=== PATIENT | male | born 1985 | race Caucasian/White ===

== ENCOUNTER 2019-08-31 16:00 | Inpatient (IN) ==
[2019-08-31] MEDS ORDERED: ASPIRIN PO ONE (16:11)
--- NOTE | 2019-08-31 17:03 | Diag Imaging Result Doc PS360 ---
EXAM: CHEST-2 VIEWS HISTORY: chest pain with hxo TECHNIQUE: Two views COMPARISON: 02/13/2019 FINDINGS: The lungs are well expanded. The heart is not enlarged. The vessels are not distended. There are no infiltrates. No pleural effusions. IMPRESSION: No acute abnormality. Electronically signed by Koko Stallworth 08/31/2019 5:01 PM
[2019-08-31 17:15] LABS: BASO# 0.09 X1000 (0.0-0.2); BASO% 0.9 % (0.0-0.8); EOS# 0.14 X1000 (0.0-0.7); EOS% 1.3 % (0.0-10.0); HEMATOCRIT 47.4 % (42.0-52.0); HEMOGLOBIN 15.8 g/dL (14.0-18.0); IMM GRAN# 0.02 X1000 (0.0-0.04); IMM GRAN% 0.2 % (0.0-0.5); LYMPH# 3.13 X1000 (1.2-3.4); LYMPH% 29.7 % (20.5-51.1); MCHC 33.3 g/dL (33-37); MCV 80.9 FL (81-99); MONO# 0.86 X1000 (0.11-0.59); MONO% 8.2 % (1.7-9.3); MPV 11.6 FL (7.4-10.4); NEUT% 59.7 % (42.2-75.2); PLT 318 X1000 (130-400); RBC 5.86 XMIL (4.7-6.1); WBC 10.54 X1000 (4.8-10.8)
--- NOTE | 2019-08-31 17:16 | PROVIDER DOCUMENTATION ---
HPI-Chest Pain - General Chief Complaint: Chest Pain Stated Complaint: CHEST PAIN, WEAKNESS Time Seen by Provider: 08/31/19 16:54 Allergies/Adverse Reactions: Patient Allergies Allergy/AdvReac Type Severity Reaction Status Date / Time ibuprofen Allergy SWELLING Verified 08/31/19 17:05 Home Medications: Home Medication List Medication Instructions Recorded Confirmed Last Taken Type ATORVAstatin [Lipitor] 20 mg PO QPM 07/08/19 08/31/19 08/30/19 History Clopidogrel [Plavix] 75 mg PO QAM 07/08/19 08/31/19 08/31/19 History Alprazolam [Xanax] 1 tab PO BID 08/31/19 08/31/19 08/31/19 History Metoprolol Succinate 1 tab PO BID 08/31/19 08/31/19 08/31/19 History - History of Present Illness-CP Nature of Presenting Problem: hx coronary artery disease x 5 stents 5 Mi this pain started this am with left side chest pain radiating to left arm Location: reports: substernal Chest Pain Radiation: reports: no radiation Quality of Pain: reports: pressure, tightness Severity in ED: moderate Onset/Duration: gradual, 3 days ago Timing: still present Context/Activities at Onset: reports: none Modifying Factors: improves with: nothing Associated Symptoms: denies: abdominal pain, fever/chills, shortness of breath Prior Chest Pain/Cardiac Workup: reports: cardiac cath, heart attack Similar Symptoms Previously?: Yes Recently Seen Here or By Another Healthcare Provider: No Review of Systems - Adult - REVIEW OF SYSTEMS - ADULT Constitutional: denies: fever, fatique Eyes: reports: no symptoms reported Ears, Nose, Mouth & Throat: reports: no symptoms reported Cardiovascular: reports: chest pain Respiratory: reports: no symptoms reported Gastrointestinal: reports: no symptoms reported Genitourinary: reports: no symptoms reported Musculoskeletal: reports: no symptoms reported Integumentary: reports: no symptoms reported Neurological: reports: no symptoms reported Psychiatric: reports: no symptoms reported Endocrine: reports: no symptoms reported Hematologic/Lymphatic: reports: no symptoms reported Allergic/Immunologic: reports: no symptoms reported Past History - Adult - PAST MEDICAL HISTORY-ADULT Review of Records: reports: Nursing Assessment Review Major Childhood Illnesses: reports: denies history Cardiovascular: reports: A-Fib, CAD, [place] Respiratory: reports: denies history Gastrointestinal: reports: denies history Obstetrical/Gynecological: reports: denies history Genitourinary: reports: denies history Musculoskeletal: reports: denies history Neurological: reports: denies history Endocrine/Immune: reports: denies history Other Conditions: reports: denies history - PRIOR SURGERIES/PROCEDURES Surgical/Procedure History: reports: cardiac stent, hernia repair - IMMUNIZATION STATUS Childhood Immunizations: See Nurse Assessment Flu Vaccine: See Nurse Assessment - FAMILY HISTORY Family History: other (AL mother 55, AL father 80. mother had CHF) Physical Exam-General - PHYSICAL EXAM-ADULT Initial Vital Signs Reviewed: Yes - CONSTITUTIONAL General Appearance: appears well, alert - EYES Eyes: PERRL/EOMI. negative: anisocoria, subconjunctival hemorrhage - HEAD, EARS, NOSE, MOUTH & THROAT HENMT: normocephalic/atraumatic, moist mucous membranes - NECK Neck: non-tender, full range of motion, supple - RESPIRATORY Respiratory: chest non-tender, lungs clear, normal breath sounds, no pleuratic chest pain, no respiratory distress - CARDIOVASCULAR Cardiovascular: normal peripheral pulses, regular rate, rhythm, no edema, no gallop, no JVD, no murmur - GASTROINTESTINAL (ABDOMEN) Abdominal Exam: normal bowel sounds, non tender, soft, no organomegaly, no pul satile mass - LYMPHATIC Lymphatic: no adenopathy - MUSCULOSKELETAL Back Exam: normal inspection, no CVA tenderness, no vertebral tenderness Extremity: normal range of motion, non-tender, normal gait - SKIN Integumentary: normal color, warm/dry - NEUROLOGIC 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: 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, grossly normal, no motor/sensory deficits - PSYCHIATRIC Psych/Mental Status: normal mood/affect - HEART Score HEART Score: History: Slightly Suspicious HEART Score: ECG: Non-Specific Repolarization Disturbance/LBBB/PM HEART Score: Age: < or = 45 Years HEART Score: Risk Factors for Atherosclerotic Disease: > or = 3 Risk Factors or History of Atherosclerotic Disease HEART Score: Troponin: < or = Normal Limit Total HEART Score:: 3 Progress - PLAN OF CARE/RESULTS Progress/Plan/Lab Results: Vital Signs - 8 hr 08/31/19 16:05 Temperature 98 F Pulse Rate 93 H Respiratory Rate 18 Blood Pressure 128/87 Laboratory Results - last 24 hr 08/31/19 08/31/19 08/31/19 16:45 16:45 16:45 WBC 10.54 RBC 5.86 Hgb 15.8 Hct 47.4 MCV 80.9 L MCH 27.0 MCHC 33.3 RDW Std Deviation 15.0 H Plt Count 318 MPV 11.6 H Immature Gran % (Auto) 0.2 Neut % (Auto) 59.7 Lymph % (Auto) 29.7 Creek % (Auto) 8.2 Eos % (Auto) 1.3 Baso % (Auto) 0.9 H Immature Gran # (Auto) 0.02 Neut # (Auto) 6.30 Lymph # (Auto) 3.13 Creek # (Auto) 0.86 H Eos # (Auto) 0.14 Baso # (Auto) 0.09 PT INR PTT (Actin FS) Sodium 140 Potassium 3.9 Chloride 106 Carbon Dioxide 19 L Anion Gap 15 BUN 10 Creatinine 0.8 Estimated GFR/1.73 m2 > 60 BUN/Creatinine Ratio 13 Glucose 107 H Calculated Osmolality 279 Calcium 9.0 Total Bilirubin 0.20 AST 17 ALT 30 Alkaline Phosphatase 103 Creatine Kinase 88 Troponin T High Sens 11 Total Protein 6.5 Albumin 4.0 Globulin 3.0 Albumin/Globulin Ratio 2.0 08/31/19 16:45 WBC RBC Hgb Hct MCV MCH MCHC RDW Std Deviation Plt Count MPV Immature Gran % (Auto) Neut % (Auto) Lymph % (Auto) Creek % (Auto) Eos % (Auto) Baso % (Auto) Immature Gran # (Auto) Neut # (Auto) Lymph # (Auto) Creek # (Auto) Eos # (Auto) Baso # (Auto) PT 12.2 INR 0.87 PTT (Actin FS) 27.9 Sodium Potassium Chloride Carbon Dioxide Anion Gap BUN Creatinine Estimated GFR/1.73 m2 BUN/Creatinine Ratio Glucose Calculated Osmolality Calcium Total Bilirubin AST ALT Alkaline Phosphatase Creatine Kinase Troponin T High Sens Total Protein Albumin Globulin Albumin/Globulin Ratio Orders Category Date Time Status Cardiac Monitoring DIRECTED Care 08/31/19 16:11 Active Oxygen Therapy- ED Nursing DIRECTED Care 08/31/19 16:11 Active Saline Loc NOW Care 08/31/19 16:11 Active CHEST-2 VIEWS [RAD] Stat Exams 08/31/19 16:11 Completed CBC WITH ELECTRONIC DIFF [HEME] Stat Lab 08/31/19 16:45 Completed CK PROFILE [SP CHEM] Stat Lab 08/31/19 16:45 Completed COMPREHENSIVE METABOLIC PANEL [CHEM] Stat Lab 08/31/19 16:45 Completed PRO B-NATRIURETIC PEPTIDE Stat Lab 08/31/19 16:45 Received PROTIME WITH INR [COAG] Stat Lab 08/31/19 16:45 Completed PTT [COAG] Stat Lab 08/31/19 16:45 Completed TROPONIN T HIGH SENSITIVITY Stat Lab 08/31/19 16:45 Completed Aspirin Med 08/31/19 16:11 Discontinued 325 mg PO NOW ONE CP/SOB/Palp >45 yrs of Age Stat Oth 08/31/19 16:11 Ordered EKG [EKG] Stat Ther 08/31/19 16:11 Draft Result Diagrams: 08/31/19 16:45 08/31/19 16:45 - CONSULTS/PCP/HOSPITALIST Notification #1 *Consult/PCP/Hospitalist*: Dr Paniagua Time Discussed: 17:15 Consult Disposition: Will see in ED, Admit Departure - Departure Date of Disposition Decision: 08/31/19 Time of Disposition Decision: 17:58 DIAGNOSIS: Chest pain Qualifiers: Chest pain type: unspecified Qualified Code(s): R07.9 - Chest pain, unspecified Disposition: ADMITTED INPATIENT 09 Certified Medical Emergency: Emergent Condition: Good Referrals and Follow-Ups: None,PCP [Primary Care Provider] - - Critical Care Note This patient required my direct & personal management of CC.: No Attestation - Physician/ FAUZIA Attestation Patient care was provided by Advanced Practice Provider:: No The physician spent face to face time with patient:: Yes Advanced Practice Provider documentation review:: Supervising physician onsite and consulted in the evaluation and care of this patient. The physician did have a face to face encounter with the patient.
[2019-08-31 17:32] LABS: AGAP 15; ALKALINE PHOSPHATASE 103 U/L (32-122); BUN 10 mg/dL (8-22); CHLORIDE 106 mmol/L (98-107); CK PROFILE 88 U/L (24-204); COSMO 279; CREATININE 0.8 mg/dL (0.7-1.2); ESTIMATED GFR > 60; GLUCOSE 107 mg/dL (70-104); GOT 17 U/L (10-34); GPT 30 U/L (10-44); POTASSIUM 3.9 mmol/L (3.5-5.1); SODIUM 140 mmol/L (136-145); TCO2 19 mmol/L (25-35); TOTAL PROTEIN 6.5 g/dL (6.3-8.3)
[2019-08-31 17:33] LABS: INR 0.87; PROTIME 12.2 Seconds (11.0-16.0)
[2019-08-31 17:34] LABS: PTT 27.9 Seconds (22.3-41.8)
--- NOTE | 2019-08-31 17:34 | EKG Report ---
Test Performed on : 08/31/2019 4:13:48 PM Test Reason : chest pain Blood Pressure : / mmHG Vent. Rate : 096 BPM Atrial Rate : 096 BPM P-R Int : 162 ms QRS Dur : 100 ms QT Int : 364 ms P-R-T Axes : 040 -09 081 degrees QTc Int : 459 ms Normal sinus rhythm. Possible Left atrial enlargement Inferior infarct (cited on or before 08-JUL-2019) Abnormal ECG When compared with ECG of 08-JUL-2019 22:09, No significant change was found Unconfirmed Result
[2019-08-31] MEDS ORDERED: TYLENOL PO PRN (18:35)
[2019-08-31] MEDS ORDERED: ZOFRAN IV PRN (18:35)
[2019-08-31] MEDS: LOVENOX SUBQ SCH (18:45)
[2019-08-31] MEDS: MORPHINE IV PRN ×2 (18:46→22:30)
--- NOTE | 2019-08-31 20:37 | HISTORY AND PHYSICAL ---
PRIMARY CARE PHYSICIAN: None. DECORATING EQUIPMENT SETTER: Dr. Medina CHIEF COMPLAINT: Left-sided chest pain with pressure and tightness radiating to the left arm with associated shortness of breath and fatigue over the past 3 days that progressively worsened. HISTORY OF PRESENTING ILLNESS: This is a 33-year-old male who presents to [facility] ER with complaints of left-sided chest pain that radiated to his left arm with pressure and tightness and associated shortness of breath and fatigue over the past 3 days that has progressively worsened. He has a history of atrial fibrillation, coronary artery disease and myocardial infarction x5 with 5 heart stent placements in the past. Workup today showed first set of cardiac enzymes with a creatine kinase of 88, and troponin T high sensitivity of 11. His EKG showed normal sinus rhythm at 96, so he will be admitted to the [facility] for further evaluation and treatment and for Cardiology consultation. PAST MEDICAL HISTORY: Coronary artery disease, myocardial infarction x5 and atrial fibrillation. PAST SURGICAL HISTORY: Heart stent placement x5 and a hernia repair. FAMILY HISTORY: Mom with myocardial infarction and CHF. Father with myocardial infarction. SOCIAL HISTORY: Currently lives with a brother and sister. Denies any tobacco use, stating he quit about 6 months ago and denied any alcohol or illicit drug use. ALLERGIES: Ibuprofen. HOME MEDICATIONS: Xanax 1 mg p.o. b.i.d., atorvastatin 20 mg p.o. nightly, Plavix 75 mg p.o. q.a.m., metoprolol 25 mg p.o. b.i.d. LABORATORY DATA: White blood cell count of 10.54, hemoglobin 15.8, hematocrit 47.4, platelets 318,000. PT and INR of 12.2 and 0.87. Sodium of 140, potassium 3.9, chloride 106, CO2 19, BUN of 10, creatinine 0.8, glucose of 107. Creatine kinase of 88. Troponin T high sensitivity of 11. Chest x-ray showed no acute abnormality. EKG showed normal sinus rhythm at 96. REVIEW OF SYSTEMS: He denied any fever, chills, blurred vision, dizziness. He was positive for chest pain that radiated down his left arm with pressure and tightness, shortness of breath and fatigue. Denied any abdominal pain, constipation, diarrhea, burning or hurting with urination. PHYSICAL EXAMINATION: VITAL SIGNS: On arrival he had a temperature of 98 degrees, pulse 93, respirations 18, blood pressure 128/87. He is saturating 97% on 2 L via nasal cannula. GENERAL: This is a 33-year-old male who is lying in the bed and answers questions appropriately. HEENT: Normocephalic, atraumatic. Normal ENT inspection. Oropharynx and nares are clear. EYES: Pupils are equal, round, reactive to light and accommodation. Extraocular movements are intact. NECK: Normal inspection, normal range of motion. LUNGS: Clear to auscultation bilaterally with equal lung expansion and chest wall movement. HEART: With regular rate and rhythm. No murmurs, rubs, or gallops. ABDOMEN: Soft, nontender, nondistended. Bowel sounds are present x4 quadrants. MUSCULOSKELETAL: He had 5/5 strength x4 extremities. NEUROLOGICAL: The cranial nerves 2-12 appear grossly intact. ASSESSMENT: 1. Chest pain. 2. Coronary artery disease, aware. 3. History of atrial fibrillation. 4. Tobacco abuse. Last use 6 months ago. PLAN: He will be admitted to the [facility] and placed on telemetry. We will do serial cardiac enzymes. Consult Cardiology. Place on a healthy heart diet. Check a lipid profile in the a.m. Place on Lovenox 40 mg subcu q.24 for DVT prophylaxis. Give him morphine 2 mg IV q.3 hours p.r.n., and further orders after seen by attending and by actuarial consultant. Dictated by JAY Vilchis for Vinh Paniagua MD cc: JAY Vilchis MD
--- NOTE | 2019-08-31 21:51 | HISTORY AND PHYSICAL ---
Patient seen and examined by myself. Full note dictated and discussed with nurse practitioner. HISTORY OF PRESENT ILLNESS: Patient presented to the hospital with chest pain, fatigue, shortness of breath, diaphoresis. He admits that he has had [*]in the past, most recently May 2018. He has not had any cardiac workup with most recent being 05/09/2018. He states he has been diaphoretic, short of breath. He states this is similar to his last myocardial infarction. Given this history, we are going to admit in the hospital, use morphine, nitroglycerin, beta sandra and transfer to [facility] for Cardiology's assistance. cc: Vinh Paniagua MD
[2019-08-31] MEDS: TOPROL XL PO SCH (22:31)
[2019-08-31] MEDS: XANAX PO SCH (22:31)
[2019-08-31] MEDS: LIPITOR PO SCH (22:31)
[2019-09-01] MEDS: MORPHINE IV PRN ×7 (01:38→23:47)
[2019-09-01] MEDS: PRILOSEC PO SCH (06:16)
[2019-09-01 08:51] LABS: CHOLESTEROL 136 mg/dL (0-200); HDL 27 mg/dL (35-55); TRIGLYCERIDES 441 mg/dL (39-160)
--- NOTE | 2019-09-01 09:36 | PROGRESS NOTE ---
DATE: 09/01/2019 SUBJECTIVE: Patient reports still having some pressure in the sternal area. Denies any shortness of breath. The pain in the chest is reproducible. Denies any fever or chills. OBJECTIVE: Vital Signs: Temperature 98.1 degrees, heart rate 95, respiratory rate 18, blood pressure 114/70, O2 saturation 95% on room air. General Examination: This is a 33-year-old male, lying in bed, in no acute distress. Cardiovascular: S1, S2 heard. No murmurs, gallops, or rubs. Regular rate and rhythm. Respiratory: Clear bilaterally to auscultation. No work of breathing or using accessory muscles. Abdomen: Soft, nontender to palpation. Bowel sounds present. No organomegaly. Extremities: No clubbing, cyanosis, or edema. Peripheral pulses present. Neurological: Patient alert and oriented x3. Moves 4 extremities. LABORATORY DATA: Troponin has been checked 3 times and are negative. ProBNP is 488. ASSESSMENT AND PLAN: 1. Chest pain. 2. History of coronary artery disease. 3. History of atrial fibrillation. 4. Tobacco abuse. PLAN: this patient continues to have chest pain. Considering his risk factors, we have contacted Cardiology. We have checked troponins 3 times and those are negative. Echocardiogram is still pending at the time of my dictation and also we have her CT of the chest. We will follow recommendations from Cardiology. Will continue to monitor this patient closely. cc: Chencho Carranza MD
[2019-09-01] MEDS: XANAX PO SCH ×3 (10:35→22:43)
[2019-09-01] MEDS ORDERED: HEPARIN 1000 UNITS/NS 2,000 UNIT/1,000 ML IV.SOLN ONE (10:37)
[2019-09-01] MEDS: PLAVIX PO SCH (10:38)
[2019-09-01] MEDS: TOPROL XL PO SCH ×3 (10:38→22:43)
[2019-09-01] MEDS ORDERED: NITROGLYCERIN ONE (10:49)
--- NOTE | 2019-09-01 10:52 | Diag Imaging Result Doc PS360 ---
CT THORAX W/O CONTRAST - 09/01/2019 INDICATION: chest pain COMPARISON: Previous chest x-ray FINDINGS: There is cardiomegaly. There is multifocal coronary artery calcification indicating coronary artery disease. There is some mild interstitial edema in the lung bases. No pneumothorax or pleural effusion. Upper abdominal images are normal. Bones are intact. IMPRESSION: Cardiomegaly. Mild interstitial edema in the lung bases. This exam was performed using automated exposure control, adjustment of mA or kV according to patient size, and/or use of iterative reconstruction technique Electronically signed by Dane Barrios 09/01/2019 10:49 AM
[2019-09-01] MEDS ORDERED: DEMEROL ONE (11:21)
[2019-09-01] MEDS ORDERED: VERSED ONE (11:21)
[2019-09-01] MEDS ORDERED: ANESTHESIA PB SET 88 IN 5742 ONE (11:21)
[2019-09-01] MEDS ORDERED: NS 1,000 ML ONE (11:21)
--- NOTE | 2019-09-01 12:37 | EKG Report ---
Test Performed on : 09/01/2019 12:27:06 PM Test Reason : post cath Blood Pressure : / mmHG Vent. Rate : 084 BPM Atrial Rate : 084 BPM P-R Int : 164 ms QRS Dur : 102 ms QT Int : 370 ms P-R-T Axes : 059 023 161 degrees QTc Int : 437 ms Normal sinus rhythm. T wave abnormality, consider inferolateral ischemia Abnormal ECG When compared with ECG of 31-AUG-2019 16:13, (Unconfirmed) No significant change was found Confirmed by Ting Rasmussen MD ([id number]) on 09/01/2019 4:20:48 PM
[2019-09-01] MEDS ORDERED: NS 1,000 ML IV SCH (13:00)
--- NOTE | 2019-09-01 13:46 | CARDIOLOGY CONSULTATION ---
DATE: 09/01/2019 CONSULTATION REQUESTED BY: The hospitalist service. REASON FOR CONSULTATION: Chest pain. HISTORY: Mr. Pal is a 33-year-old male who states that he was in his usual state of health until yesterday morning. He says that about 9 o'clock he went to have a bowel movement and as he had a bowel movement, he noted that he was passing blood clots. Thereafter, he started feeling dizzy, lightheaded and started having chest tightness, intermittent, frequent bouts of it, moderate in severity with some radiation to the left arm. Because this went on for a number of hours, he decided to go to the [facility] where he was checked. They did a chest x-ray which showed no acute abnormalities. They did an EKG that shows sinus rhythm with a pattern of old inferior scar. Early transition. They checked troponin levels. They have checked a total of 3 at 4:45 p.m. yesterday at 6:52 p.m. yesterday, and at 3 a.m. today, all of them are normal. Pro BNP is 488 pg/mL which is about 5 times baseline. Cholesterol is 136 mg/dL, HDL 27 mg/dL, LDL is not measured, and the triglycerides 441 mg/dL. White cell count is normal. Hemoglobin is 15.8 gr%. The patient reported having prior history of coronary disease and because of that, they decided to admit the patient for further evaluation. PAST HISTORY: According to him is positive for myocardial infarction 4 years ago. He was taken care of by the cardiology team in [place]. He had a stent back then and then subsequently he has had more intervention, the last one May 2018. Since then, he has been taking antiplatelet regimen of aspirin and clopidogrel. 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 Garrett, who is following him. The patient has been advised to pursue implantation of ICD defibrillator because of low ejection fraction. SURGICAL HISTORY: He has had hernia repair. FAMILY HISTORY: Both parents are . Mother at the age of 45. Father at the age of 80. SOCIAL HISTORY: He is unemployed. I think he is on disability. He lives with girlfriend. He has quit smoking about 6 months ago. The patient has 2 children ages 17 years and 3 years old. The patient does not use drugs. HOME MEDICATIONS: Included Xanax 1 tablet twice a day, Lipitor 10 mg at bedtime, clopidogrel 75 mg daily, metoprolol 1 tablet twice a day. REVIEW OF SYSTEMS: Up until the onset of this pain he had been relatively pain- free, although he has limited ability to perform physical activities. PHYSICAL EXAMINATION: Vital signs: Blood pressure 114/70, temperature 91 degrees, pulse 95, respirations 18. General: The patient is awake, alert, oriented, in no distress. HEENT: Unremarkable. Chest: Sounds clear to auscultation and percussion. Heart: Sounds regular and rhythmic. No gallop or murmur. Abdomen: Soft, nontender. No masses. No hepatomegaly. Extremities: Good pulses. No peripheral edema. Neurologic: Nonfocal. Moves 4 extremities. IMPRESSION: 1. The patient presenting with recurrent chest pain, which seems to have an unstable pattern. This could be atypical however it may will be unstable angina. 2. Rectal bleeding/low gastrointestinal bleeding. 3. History of previous myocardial infarction, previous stent with chronic left ventricular systolic function. 4. Dyslipidemia with high triglycerides, low HDL. 5. Former smoker. 6. Strong family history of premature heart disease. RECOMMENDATION: Given his presentation and the combination of issues, it may be best to reassess his coronary anatomy to have a an idea whether or not we can put on hold his antiplatelet regimen or do a GI evaluation at the same time versus pursuing other avenues of therapy. I explained to the patient benefits and complication. He is in agreement. Will proceed doing it. cc: MD [email or web address] Jean
--- NOTE | 2019-09-01 16:21 | CARDIAC CATH REPORT ---
DATE: 09/01/2019 PROCEDURES: 1. Left heart catheterization. 2. Selective bilateral coronary arteriography. 3. Left ventriculography. 4. Opacification of the right femoral artery with successful deployment of 6 Faroese Angio-Seal device. HISTORY: A 33-year-old male with history of premature heart disease, multiple stents in the past, presented with chest pain as well as rectal bleeding. Because of the recurrent discomfort in the chest and the combination with the rectal bleeding, we felt like cardiac catheterization was necessary to confirm or rule out the presence of occlusion of his stents. Benefits, risks and complications were explained to him. He understood and requested to proceed. DESCRIPTION: The patient came in to the cardiac recyclable materials sorter in a fasting state. The right groin was prepped and draped in a sterile fashion, anesthetized with lidocaine 1%. A 6 Faroese sheath was inserted into the right femoral artery by following the modified Seldinger technique. The patient received a total of 2 mg of Versed and 50 mg of Demerol given in divided doses during the procedure. He also received nitroglycerin intraarterially, 200 mcg 1 time. Initially, we opacified the left coronary artery with a 6 Faroese left Marium 4 catheter. Then we opacified the right coronary artery with a 6 Faroese right Marium catheter. We performed an LV gram in the 60 degree SAMMARINESE projection with the right Marium catheter and then a ventriculogram with a pigtail catheter in the 30 degree REDD projection with caudal angulation by injecting 40 mL of Omnipaque at 12 mL/second. At the end of the procedure, the catheters were removed and the sheath was flushed. Right femoral artery opacified and then Angio-Seal device was deployed successfully. The patient tolerated the procedure well without complication. SUMMARY OF HEMODYNAMIC FINDINGS: Central aortic pressure 114/85, left ventricular pressure 118/26. Post LV gram went up to 32 then we gave the patient intraarterial nitroglycerin and the LVEDP dropped to 10 mm. The final central aortic pressure 122/83. SUMMARY OF THE ANGIOGRAPHIC FINDINGS: 1. Left main coronary artery: The vessel is anatomically normal, divides into LAD and circumflex. 2. Left anterior descending coronary artery: The vessel shows the presence of a patent stent in its mid portion as well as a patent stent within the first diagonal branch. The LAD proximally shows mild plaque no more than 25%. The mid segment of the LAD is patent and in its apical segment there is a 70% to 80% stenosis, however, the vessel at the level is about 1 mm in caliber. The diagonal is patent and it seems to be in good condition. 3. Circumflex coronary artery: The circumflex is nondominant. It shows the presence of a patent stent in its mid segment. The terminal portion of the obtuse marginal branch is patent with multiple smaller branches well visualized. The A-V branch is also in good condition, there is no stenosis. 4. Right coronary artery: The right coronary artery is a dominant vessel. Proximally shows evidence of plaque in its proximal segment of about 25% or so. No critical stenosis is noted. The sinus israel branch comes off of the proximal right coronary artery. Then acute marginal branches come off and there is an early bifurcation of the posterior descending branch, which is a large vessel, and a posterior descending branch, which is a good vessel without any stenosis. LEFT VENTRICULOGRAM: Left ventriculogram in the 30 degree REDD projection and 60 degree SAMMARINESE projection shows enlargement of the left ventricular chamber with significant impaired function. There is akinesis of the apical inferior segment and apical lateral segment. The global ejection fraction appears to be around 30%. There is no mitral valve regurgitation. OPACIFICATION OF THE RIGHT FEMORAL ARTERY: The right femoral artery is anatomically normal. Angio-Seal device was deployed successfully. SUMMARY: This study shows: 1. Patient with a history of severe coronary heart disease with patent stents to LAD, diagonal, circumflex, and right coronary artery. 2. There is evidence of significant stenosis of the apical LAD about 75% to 80%. The vessel is too small for intervention. 3. Dilated left ventricle with significantly impaired function, ejection fraction of 30%. 4. Elevated LVEDP that goes down rather quickly with nitroglycerin intraarterially. 5. No mitral valve regurgitation or aortic stenosis. RECOMMENDATIONS: The patient will be treated medically. We will call the GI industrial methods consultant to evaluate the rectal bleeding. At this time, we are not going to make any changes to his medications. cc: Kev Parada MD
[2019-09-01] MEDS: LIPITOR PO SCH ×2 (19:49→22:43)
[2019-09-01] MEDS: LOVENOX SUBQ SCH (21:43)
[2019-09-02] MEDS: MORPHINE IV PRN (03:24)
[2019-09-02] MEDS: PRILOSEC PO SCH ×2 (05:57→06:21)
[2019-09-02 07:39] VITALS: BP 129/81
[2019-09-02] MEDS ORDERED: MORPHINE IV PRN (07:44)
--- NOTE | 2019-09-02 08:11 | PROGRESS NOTE ---
DATE: 09/02/2019 SUBJECTIVE: Patient reports chest pain is getting better. Denies any fever or chills. OBJECTIVE: Vital Signs: Temperature 98.2 degrees, heart rate 77, respiratory 22, blood pressure 116/80, O2 saturation 97% 2 L nasal cannula. General: This is a 33-year-old male, lying in bed, in no acute distress. Cardiovascular: S1, S2 heard. No murmurs, gallops, or rubs. Regular rate and rhythm. Respiratory: Clear bilaterally to auscultation. No work of breathing or use of accessory muscles. Abdomen: Soft, nontender to palpation. Bowel sounds present. No organomegaly. Extremities: No clubbing, cyanosis, or edema. Peripheral pulses present in both legs. Neurological: Patient alert and oriented x3. Moves 4 extremities. LABORATORY DATA: Pending at the time of my dictation. Creatinine 0.8 today and magnesium 1.9. ASSESSMENT AND PLAN: 1. Chest pain. 2. History of coronary artery disease. 3. History of atrial fibrillation. 4. Tobacco abuse. PLAN: Because of risk factors, patient has undergone cardiac catheterization basically that shows coronary artery disease with evidence of significant stenosis on apical LAD about 75 to 80 percent but the vessel is too small for intervention. Cardiology has recommended medical treatment. The ejection fraction is 30%. The patient reported that he had an episode of rectal bleeding that was mild 2 times. He has not had any episodes before. He is not having any more episodes of bleeding so at this time, awaiting for results of CBC and if there is any drop, probably will pursue GI consult. Otherwise that problem will be taken care of as an outpatient. Patient has history of paroxysmal atrial fibrillation. Currently in sinus rhythm. I do not think we need to do anything at this point for that condition. The patient has been strongly advised to stop smoking. At this point, we will continue with medical management only for this problem. Once patient is cleared by Cardiology he can be discharged. cc: Chencho Carranza MD
[2019-09-02] MEDS: TOPROL XL PO SCH (08:16)
[2019-09-02] MEDS: PLAVIX PO SCH (08:16)
[2019-09-02] MEDS: XANAX PO SCH (08:16)
[2019-09-02 08:43] LABS: BASO# 0.05 X1000 (0.0-0.2); BASO% 0.6 % (0.0-0.8); EOS# 0.14 X1000 (0.0-0.7); EOS% 1.6 % (0.0-10.0); HEMATOCRIT 45.6 % (42.0-52.0); IMM GRAN# 0.02 X1000 (0.0-0.04); IMM GRAN% 0.2 % (0.0-0.5); LYMPH# 3.36 X1000 (1.2-3.4); LYMPH% 39.2 % (20.5-51.1); MCHC 32.9 g/dL (33-37); MCV 82.2 FL (81-99); MONO# 0.74 X1000 (0.11-0.59); MONO% 8.6 % (1.7-9.3); MPV 11.7 FL (7.4-10.4); NEUT# 4.27 X1000 (1.4-6.5); NEUT% 49.8 % (42.2-75.2); PLT 257 X1000 (130-400); RBC 5.55 XMIL (4.7-6.1); WBC 8.58 X1000 (4.8-10.8)
[2019-09-02 08:51] LABS: AGAP 15; BUN 7 mg/dL (8-22); CHLORIDE 108 mmol/L (98-107); COSMO 277; CREATININE 0.8 mg/dL (0.7-1.2); ESTIMATED GFR > 60; GLUCOSE 85 mg/dL (70-104); POTASSIUM 4.5 mmol/L (3.5-5.1); SODIUM 140 mmol/L (136-145); TCO2 17 mmol/L (25-35)
--- NOTE | 2019-09-02 08:51 | ECHO REPORT ---
ORDER DATE: 09/01/2019 MEASUREMENTS: Septal thickness 1.2, left ventricular internal diameter in diastole 6.2, posterior wall thickness 1.2, aortic root 3.4. SUMMARY: 1. Fair quality study. 2. Aortic valve is trileaflet and opens normally on 2-dimensional images. The peak gradient across the aortic valve is less than 5 mmHg. Mitral, tricuspid, and pulmonic valves are without evidence of structural abnormality with mild mitral regurgitation and mild tricuspid regurgitation. The estimated systolic PA pressure by Doppler is 30 mmHg. The aortic root is normal in size. 3. Mild left ventricular enlargement with mild concentric left ventricular hypertrophy is demonstrated. The estimated left ventricular ejection fraction is approximately 30-35% in the setting of global hypokinesis. Left atrium, right atrium, and right ventricle are normal in size with grossly preserved right ventricular systolic function. 4. No pericardial effusion. 5. Appearance of inferior vena cava suggests normal central venous pressure. cc: MD Kev Garcia MD
[2019-09-02] MEDS ORDERED: FLEXERIL PO SCH (21:00)
--- NOTE | 2019-09-03 06:02 | DISCHARGE SUMMARY ---
ADMISSION DATE: 08/31/2019 DISCHARGE DATE: 09/02/2019 DISCHARGE DIAGNOSES: 1. Chest pain, resolved. 2. Coronary artery disease, aware. 3. Acute coronary syndrome, ruled out. 4. History of atrial fibrillation. 5. Tobacco abuse. CONSULTATIONS: Dr. Kev Parada from Cardiology. PROCEDURES: 1. Chest x-ray done on admission showed no acute abnormality. 2. Chest CT showed cardiomegaly with mild interstitial edema in the lung bases. Cardiac catheterization showed dilated left ventricle with significant impaired function and ejection fraction of 30%. There is evidence of significant stenosis of the apical LAD, about 75 to 80 percent. The vessel is too small for intervention. No mitral valve regurgitation or aortic stenosis. HOSPITAL COURSE: This is a 33-year-old male who presented to the emergency department complaining of left-sided chest pain that radiated to the left arm. He was admitted to the hospital, the patient was evaluated by Cardiology and they went up doing left heart catheterization with results as above. The patient was doing fine. Not complaining of any chest pain. Also during his hospitalization, it was noticed that this patient had rectal bleeding just last Saturday. We have checked hemoglobin on admission and on discharge and there have not been any major changes. He is going to be referred to a GI doctor and be seen as an outpatient. At this point, the patient can be safely discharged home. He will have followup with his regular industrial engineering professor. DISCHARGE PHYSICAL EXAMINATION: Vitals: Temperature 98 degrees, heart rate 76, respiratory rate 24, blood pressure 129/81, 100% on room air. General: This is a 33-year-old male, lying in bed, in no acute distress. Cardiovascular: S1, S2 heard. No murmurs, gallops, or rubs. Regular rate and rhythm. Respiratory exam: Clear bilaterally to auscultation. No work of breathing or using accessory muscles. Abdomen: Soft, nontender to palpation. Bowel sounds present. No organomegaly. Extremities: No clubbing, cyanosis, or edema. Peripheral pulses present. Moves 4 extremities. DISCHARGE DISPOSITION: 1. Home to self-care. 2. Follow up with Dr. Benny Sumner in 2-3 weeks for evaluation of rectal bleeding. 3. Medications: We are not going to make any changes to his current medications. TIME SPENT: Time discharging this patient, 26 minutes. cc: Chencho Carranza MD
== END 2019-09-02 11:54 | disposition home or self-care (01) | DRG 287 ==
LOC: P.EDIPHOLD 16:00 → P.ED 16:00 → 3N 16:00 → SUATTDRO 20:18 → OBSVTOIN 20:18 → 2N 09-01 11:20
PROVIDERS: ATTEND Internal Medicine